=== PATIENT | male | born 1945 | race Caucasian/White ===

== ENCOUNTER 2018-01-31 19:33 | Observation (INO) | payer OTHER ==
--- NOTE | 2018-01-31 21:21 | RAD REPORT ---
EXAM DESCRIPTION: CT - Head Brain Wo Cont - 01/31/2018 9:11 pm CLINICAL HISTORY: DIZZINESS Headache, drowsiness COMPARISON: HEAD BRAIN W O CONTRAST dated 03/26/2012 TECHNIQUE: All CT scans are performed using dose optimization technique as appropriate and may inclu de automated exposure control or mA/KV adjustment according to patient size. FINDINGS: No intracranial hemorrhage, hydrocephalus or extra-axial fluid collection.No areas of brai n edema or evidence of midline shift. The paranasal sinuses and mastoids are clear. The calvarium is intact. IMPRESSION: No acute intracranial abnormality.
--- NOTE | 2018-01-31 21:24 | RAD REPORT ---
EXAM DESCRIPTION: RAD - Chest Single View - 01/31/2018 9:16 pm CLINICAL HISTORY: . Chest pain. COMPARISON: CHEST SINGLE VIEW dated 03/26/2012 FINDINGS: Portable technique limits examination quality. The lungs are grossly clear. The heart is normal in size. No displaced fractures. IMPRESSION: No acute intrathoracic process suspected.
[2018-01-31 21:43] LABS: Absolute Lymphocytes (CBC) 1.9 K/uL (0.7-4.9); Absolute Monocytes 0.7 K/uL (0.1-1.3); Absolute Neutrophil 6.4 K/uL (1.8-8.0); Basophils % 0.7 % (0-1.3); Eosinophils % 2.4 % (0-4.4); Lymphocytes % 20.4 % (15.3-44.8); MCH 32.6 pg (27.0-35.0); MCV 93.2 fL (80-100); Monocytes % 7.7 % (3.3-12.3); RBC Red Blood Cell Count 4.51 M/uL (4.33-5.43)
[2018-01-31 21:45] LABS: Protime INR 0.97
[2018-01-31 22:06] LABS: ALT/SGPT 29 U/L (12-78); AST/SGOT 35 U/L (15-37); Albumin 3.8 g/dL (3.4-5.0); Alkaline Phosphatase 90 U/L (45-117); BUN Blood Urea Nitrogen 20 mg/dL (7-18); Bicarbonate 31 mmol/L (21-32); Bilirubin Direct < 0.1 mg/dL (0-0.2); Bilirubin Total 0.5 mg/dL (0.2-1.0); Glucose Level 98 mg/dL (74-106); Magnesium 2.2 mg/dL (1.8-2.4); NT PRO-BNP 37 pg/mL (<125); Potassium 4.3 mmol/L (3.5-5.1); Sodium Level 137 mmol/L (136-145); Troponin (Emerg Dept Use Only) < 0.02 ng/mL (0.0-0.045)
[2018-01-31 22:55] LABS: Urine Blood NEGATIVE (NEG); Urine Glucose NEGATIVE (NEG); Urine Protein NEGATIVE (NEG); Urine Specific Gravity 1.015 (1.005-1.030)
--- NOTE | 2018-02-01 00:41 | EDPHYS ---
Physician Documentation [facility] Name: Daniel Slaughter Age: 72 yrs Sex: Male : 1945 Arrival Date: 01/31/2018 Time: 19:34 Bed 20 Private MD: ED Physician Sheldon Ramesh HPI: 01/31 22:03 This 72 yrs old Male presents to ER via Ambulatory with complaints of tw4 Dizziness, Headache. 22:03 The patient presents with lightheadedness. Onset: The symptoms/episode began/occurred tw4 10 day(s) ago. Context: occurred at home. Modifying factors: The symptoms are alleviated by nothing, the symptoms are aggravated by nothing. Associated signs and symptoms: The patient has no apparent associated signs or symptoms. Severity of symptoms: At their worst the symptoms were moderate in the emergency department the symptoms are unchanged. The patient has not experienced similar symptoms in the past. Historical: - Allergies: 19:42 No Known Allergies; aj1 - Home Meds: 19:42 "an over the counter natural medicine to lower my cholesterol" [Active]; aj1 - PMHx: 19:42 Hyperlipidemia; aj1 - Immunization history:: Flu vaccine is up to date. - Social history:: Smoking status: Patient/guardian denies using tobacco. - Ebola Screening: : Patient denies travel to an Ebola-affected area in the 21 days before illness onset. ROS: 22:03 Constitutional: Negative for fever, chills, and weight loss, Eyes: Negative for injury, tw4 pain, redness, and discharge, Cardiovascular: Negative for chest pain, palpitations, and edema, Respiratory: Negative for shortness of breath, cough, wheezing, and pleuritic chest pain, Abdomen/GI: Negative for abdominal pain, nausea, vomiting, diarrhea, and constipation, Back: Negative for injury and pain, MS/Extremity: Negative for injury and deformity, Skin: Negative for injury, rash, and discoloration. 22:03 Neuro: Positive for dizziness, Negative for altered mental status, gait disturbance, headache, hearing loss, loss of consciousness, numbness, seizure activity, speech changes, syncope, near syncope. Exam: 22:03 Constitutional: This is a well developed, well nourished patient who is awake, alert, tw4 and in no acute distress. Head/Face: Normocephalic, atraumatic. Chest/axilla: Normal chest wall appearance and motion. Nontender with no deformity. No lesions are appreciated. Cardiovascular: Regular rate and rhythm with a normal S1 and S2. No gallops, murmurs, or rubs. Normal PMI, no JVD. No pulse deficits. Respiratory: Lungs have equal breath sounds bilaterally, clear to auscultation and percussion. No rales, rhonchi or wheezes noted. No increased work of breathing, no retractions or nasal flaring. Abdomen/GI: Soft, non-tender, with normal bowel sounds. No distension or tympany. No guarding or rebound. No evidence of tenderness throughout. Back: No spinal tenderness. No costovertebral tenderness. Full range of motion. MS/ Extremity: Pulses equal, no cyanosis. Neurovascular intact. Full, normal range of motion. Neuro: Awake and alert, GCS 15, oriented to person, place, time, and situation. Cranial nerves II-XII grossly intact. Motor strength 5/5 in all extremities. Sensory grossly intact. Cerebellar exam normal. Normal gait. Vital Signs: 19:42 BP 141 / 76; Pulse 51; Resp 18; Temp 97.7(O); Pulse Ox 100% on R/A; Weight 77.11 kg aj1 (R); Height 5 ft. 4 in. (162.56 cm) (R); Pain 8/10; 20:30 BP 135 / 75; Pulse 53; Resp 16 S; Pulse Ox 99% on R/A; cc3 21:00 BP 116 / 95; Pulse 54; Resp 17 S; Pulse Ox 100% on R/A; cc3 22:30 BP 147 / 83; Pulse 54; Resp 17 S; Pulse Ox 98% on R/A; cc3 23:45 BP 116 / 67; Pulse 55; Resp 18 S; Pulse Ox 98% on R/A; cc3 02/01 00:29 BP 135 / 62; Pulse 60; Resp 18 S; Pulse Ox 100% on R/A; cc3 01:30 BP 133 / 79; Pulse 53; Resp 16 S; Pulse Ox 97% on R/A; cc3 02:44 BP 126 / 78; Pulse 54; Resp 17 S; Pulse Ox 97% on R/A; cc3 01/31 19:42 Body Mass Index 29.18 (77.11 kg, 162.56 cm) aj1 MDM: 01/31 20:43 Patient medically screened. tw02/01 05:31 Differential diagnosis: cardiac arrhythmia, CVA, generalized weakness, tw4 hyperventilation, idiopathic dizziness, near-syncope. Data reviewed: vital signs, nurses notes. Counseling: I had a detailed discussion with the patient and/or guardian regarding: the historical points, exam findings, and any diagnostic results supporting the discharge/admit diagnosis. Special discussion: I discussed with the patient/guardian in detail that at this point there is no indication for admission to the hospital. It is understood, however, that if the symptoms persist or worsen the patient needs to return immediately for re-evaluation. 01/31 20:54 Order name: Basic Metabolic Panel; Complete Time: 00:16 02/01 00:16 Interpretation: Normal except: BUN 20; CRE 1.40; GFR 50. 01/31 20:54 Order name: CBC with Diff; Complete Time: 00:20 02/01 00:20 Interpretation: Within normal limits. 01/31 20:54 Order name: LFT's; Complete Time: 00:19 02/01 00:20 Interpretation: Normal except: GLOB 4.2; A/G 0.9. 01/31 20:54 Order name: Magnesium; Complete Time: 00:20 02/01 00:20 Interpretation: Within normal limits: MG 2.2. 01/31 20:54 Order name: NT PRO-BNP; Complete Time: 00:20 02/01 00:20 Interpretation: Within normal limits: NT PRO-BNP 37. 01/31 20:54 Order name: PT-INR 01/31 20:54 Order name: Troponin (emerg Dept Use Only); Complete Time: 00:21 02/01 00:21 Interpretation: Within normal limits: TROPED < 0.02. 01/31 20:54 Order name: XRAY Chest (1 view) 01/31 20:54 Order name: EKG; Complete Time: 20:55 01/31 20:54 Order name: Cardiac monitoring; Complete Time: 21:01 01/31 20:54 Order name: EKG - Nurse/Tech; Complete Time: 21:52 01/31 20:56 Order name: CT Head Brain wo Cont tw4 01/31 22:23 Order name: Urine Dipstick--Ancillary (enter results) gm 01/31 20:54 Order name: IV Saline Lock; Complete Time: 21:36 tw4 01/31 20:54 Order name: Labs collected and sent; Complete Time: 21:36 tw4 01/31 20:54 Order name: O2 Per Protocol; Complete Time: 21: tw4 01/31 20:54 Order name: O2 Sat Monitoring; Complete Time: 21: tw4 EC/12 22:06 Rate is 52 beats/min. Rhythm is regular with Right bundle branch block. QRS [place] is tw4 Normal. DE interval is normal. QRS interval is normal. QT interval is normal. No Q waves. T waves are Normal. No ST changes noted. Clinical impression: NSR w/ Non-specific ST/T Changes. Interpreted by me. Reviewed by me. Administered Medications: 02/01 02:00 Drug: NS 0.9% 1000 ml Route: IV; Rate: 1 bolus; Site: right antecubital; cc3 02:35 Follow up: Response: No adverse reaction; IV Status: Infusion continued upon admission cc3 Disposition: 02/01/18 00:40 Hospitalization ordered by Gladys Wallace for Observation. Preliminary diagnosis is Chest pain, unspecified. - Bed requested for Telemetry/MedSurg (observation). - Status is Observation. cc3 - Condition is Stable. - Problem is new. - Symptoms have improved. UTI on Admission? No Signatures: Dispatcher [employer] EDPR Renea Casper RN RN aj1 Alejandra Pena RN RN fc Garcia, Cindy, RN RN Sheldon Ramesh MD MD tw4 Pao Muniz cc3 Corrections: (The following items were deleted from the chart) 02:20 00:40 Hospitalization Ordered by Gladys Wallace MD for Observation. Preliminary cg diagnosis is Chest pain, unspecified. Bed requested for Telemetry/MedSurg (observation). Status is Observation. Condition is Stable. Problem is new. Symptoms have improved. UTI on Admission? No. tw4 03:03 02:20 02/01/2018 00:40 Hospitalization Ordered by Gladys Wallace MD for Observation. cc3 Preliminary diagnosis is Chest pain, unspecified. Bed requested for Telemetry/MedSurg (observation). Status is Observation. Condition is Stable. Problem is new. Symptoms have improved. UTI on Admission? No. cg
--- NOTE | 2018-02-01 00:41 | ER ---
Nurse's Notes [facility] Name: Daniel Slaughter Age: 72 yrs Sex: Male : 1945 Arrival Date: 01/31/2018 Time: 19:34 Bed 20 Private MD: Diagnosis: Chest pain, unspecified Presentation: 01/31 19:36 Presenting complaint: Patient states: Dizziness for the past week that's worse today. aj1 Reports that he is having trouble getting to the bathroom in the morning because of the dizziness. Also reports that he "sometimes has some neck stiffness" when he wakes up in the morning. Reports that he has been more tired in the morning than usual. Transition of care: patient was not received from another setting of care. Onset of symptoms was January 24, 2018. Risk Assessment: Do you want to hurt yourself or someone else? Patient reports no desire to harm self or others. Initial Sepsis Screen: Does the patient meet any 2 criteria? No. Patient's initial sepsis screen is negative. Does the patient have a suspected source of infection? No. Patient's initial sepsis screen is negative. Care prior to arrival: None. 19:36 Method Of Arrival: Ambulatory aj1 19:36 Acuity: ISIDRA 3 aj1 Triage Assessment: 19:42 General: Appears in no apparent distress. comfortable, Behavior is calm, cooperative, aj1 appropriate for age. Pain: Complains of pain in neck Pain currently is 8 out of 10 on a pain scale. Pain began one week ago. Neuro: Level of Consciousness is awake, alert, obeys commands. Cardiovascular: Patient's skin is warm and dry. Respiratory: Airway is patent Respiratory effort is even, unlabored, Respiratory pattern is regular, symmetrical. 20:16 Headache History: The patient has had previous headaches and this one is different than cc3 previous episodes, and this one is more severe than previous episodes. Pain: Also complains of no other associated symptoms. Historical: - Allergies: 19:42 No Known Allergies; aj1 - Home Meds: 19:42 "an over the counter natural medicine to lower my cholesterol" [Active]; aj1 - PMHx: 19:42 Hyperlipidemia; aj1 - Immunization history:: Flu vaccine is up to date. - Social history:: Smoking status: Patient/guardian denies using tobacco. - Ebola Screening: : Patient denies travel to an Ebola-affected area in the 21 days before illness onset. Screenin:16 Abuse screen: Denies threats or abuse. Denies injuries from another. Nutritional cc3 screening: No deficits noted. Tuberculosis screening: No symptoms or risk factors identified. Fall Risk Ambulatory Aid- None/Bed Rest/Nurse Assist (0 pts). Gait- Normal/Bed Rest/Wheelchair (0 pts) Mental Status- Oriented to own ability (0 pts). Assessment: 20:16 Reassessment: Patient appears in no apparent distress at this time. Patient and/or cc3 family updated on plan of care and expected duration. Pain level reassessed. Patient is alert, oriented x 3, equal unlabored respirations, skin warm/dry/pink. 21:30 Reassessment: Patient appears in no apparent distress at this time. Patient and/or cc3 family updated on plan of care and expected duration. Pain level reassessed. Patient is alert, oriented x 3, equal unlabored respirations, skin warm/dry/pink. 22:45 Reassessment: Patient appears in no apparent distress at this time. Patient and/or cc3 family updated on plan of care and expected duration. Pain level reassessed. Patient is alert, oriented x 3, equal unlabored respirations, skin warm/dry/pink. 23:05 Reassessment: Patient appears in no apparent distress at this time. Patient and/or cc3 family updated on plan of care and expected duration. Pain level reassessed. Patient is alert, oriented x 3, equal unlabored respirations, skin warm/dry/pink. 02/01 00:40 Reassessment: Patient appears in no apparent distress at this time. Patient and/or cc3 family updated on plan of care and expected duration. Pain level reassessed. Patient is alert, oriented x 3, equal unlabored respirations, skin warm/dry/pink. Patient for admission, waiting for admission orders. 01:20 Reassessment: Patient appears in no apparent distress at this time. Patient and/or cc3 family updated on plan of care and expected duration. Pain level reassessed. Patient is alert, oriented x 3, equal unlabored respirations, skin warm/dry/pink. 02:35 Reassessment: Patient appears in no apparent distress at this time. Patient and/or cc3 family updated on plan of care and expected duration. Pain level reassessed. Patient is alert, oriented x 3, equal unlabored respirations, skin warm/dry/pink. Room available at 214, report handed over to CARLOS ALBERTO Aaron for continuity of care. 03:00 Reassessment: Patient appears in no apparent distress at this time. Patient and/or cc3 family updated on plan of care and expected duration. Pain level reassessed. Patient is alert, oriented x 3, equal unlabored respirations, skin warm/dry/pink. Patient left ER for admission vitally stable by wheelchair escorted by compressor service technicianrubi Fortune. Vital Signs: 01/31 19:42 BP 141 / 76; Pulse 51; Resp 18; Temp 97.7(O); Pulse Ox 100% on R/A; Weight 77.11 kg aj1 (R); Height 5 ft. 4 in. (162.56 cm) (R); Pain 8/10; 20:30 BP 135 / 75; Pulse 53; Resp 16 S; Pulse Ox 99% on R/A; cc3 21:00 BP 116 / 95; Pulse 54; Resp 17 S; Pulse Ox 100% on R/A; cc3 22:30 BP 147 / 83; Pulse 54; Resp 17 S; Pulse Ox 98% on R/A; cc3 23:45 BP 116 / 67; Pulse 55; Resp 18 S; Pulse Ox 98% on R/A; cc3 02/01 00:29 BP 135 / 62; Pulse 60; Resp 18 S; Pulse Ox 100% on R/A; cc3 01:30 BP 133 / 79; Pulse 53; Resp 16 S; Pulse Ox 97% on R/A; cc3 02:44 BP 126 / 78; Pulse 54; Resp 17 S; Pulse Ox 97% on R/A; cc3 01/31 19:42 Body Mass Index 29.18 (77.11 kg, 162.56 cm) aj1 ED Course: 01/31 02:40 No provider procedures requiring assistance completed. Patient admitted, IV remains in cc3 place. 19:34 Patient arrived in ED. ds1 19:41 Triage completed. aj1 19:42 Arm band placed on Patient placed in waiting room, Patient notified of wait time. aj1 20:16 Pao Muniz is Primary Nurse. cc3 20:16 Patient has correct armband on for positive identification. Bed in low position. Call cc3 light in reach. Side rails up X 1. clinical research monitor on. Pulse ox on. NIBP on. 20:43 Sheldon Ramesh MD is Attending Physician. tw4 20:[address] nj 21:12 CT Head Brain wo Cont In Process Unspecified. EDMS 21:12 CT completed. Patient tolerated procedure well. Patient moved back from CT. nj 21:16 XRAY Chest (1 view) In Process Unspecified. EDMS 21:36 Inserted saline lock: 20 gauge in right antecubital area, using aseptic technique. nd Blood collected. 12 00:40 Gladys Wallace MD is Hospitalizing Provider. tw4 Administered Medications: 02:00 Drug: NS 0.9% 1000 ml Route: IV; Rate: 1 bolus; Site: right antecubital; cc3 02:35 Follow up: Response: No adverse reaction; IV Status: Infusion continued upon admission cc3 Outcome: 00:40 Decision to Hospitalize by Provider. tw4 02:35 Admitted to Med/surg accompanied by tech, via wheelchair, room 214, with chart, Report cc3 called to CARLOS ALBERTO Aaron 02:35 Condition: stable 02:35 Instructed on the need for admit, Demonstrated understanding of instructions. 03:03 Patient left the ED. cc3 Signatures: Dispatcher [employer] Renea Michael, RN RN [email or web address] Serafin, Alanna ds1 Brad No, Lesly nd Sheldon Ramesh MD MD tw4 Pao Muniz cc3
[2018-02-01] MEDS ORDERED: NA CHLORIDE 0.9% 1,000 ML ONE (02:12)
[2018-02-01] MEDS ORDERED: ONDANSETRON 4 MG/2 ML VIAL IV PRN (02:47)
[2018-02-01] MEDS ORDERED: ACETAMINOPHEN 500 MG TAB PO PRN (02:47)
[2018-02-01 03:27] VITALS: BMI 29.9
[2018-02-01] MEDS: NA CHLORIDE 0.9% 1,000 ML IV SCH ×4 (03:41→23:00)
[2018-02-01 04:18] VITALS: O2SAT 95
--- NOTE | 2018-02-01 05:00 | P.HP ---
Certification for Inpatient Patient admitted to: Observation With expected LOS: <2 Midnights Practitioner: I am a practitioner with admitting privileges, knowledge of patient current condition, hospital course, and medical plan of care. Services: Services provided to patient in accordance with Admission requirements found in Title 42 Section 412.3 of the Code of Federal Regulations Patient History Date of Service: 02/01/18 Reason for admission: dizziness History of Present Illness: Mr Slaughter is a 72 years old male with history of dyslipidemia, who start about 3-4 days ago with progressive weakness and dizziness. He is not able to walk safe, since he is afraid to fall. He denied fever or chills. He has not had chest pain, cough or SOB. He noticed that has been urinating less in the last couple of days. CT head showed no acute abnormalities. Lab work remarkable for normal WBC count, creatinine mildly elevated, UA unremarkable. Allergies No Known Allergies Allergy (Verified 03/27/12 05:52) Home medications list reviewed: Yes Home Medications: NK [No Home Meds] 02/01/18 - Past Medical/Surgical History Has patient received pneumonia vaccine in the past: Yes Diabetic: No -: hyperlipidemia -: inflammed prostate - Family History Family History: Reviewed- Non-Contributory - Social History Smoking Status: Former smoker Alcohol use: Yes CD- Drugs: No Caffeine use: Yes Place of Residence: Home Review of Systems 10-point ROS is otherwise unremarkable Physical Examination - Vital Signs Temperature: 97.7 F Blood Pressure: 126/78 Pulse: 54 Respirations: 17 - Physical Exam General: Alert, In no apparent distress HEENT: Atraumatic, PERRLA, Mucous membr. moist/pink, EOMI, Sclerae nonicteric Neck: Supple, 2+ carotid pulse no bruit, No LAD, Without JVD or thyroid abnormality Respiratory: Clear to auscultation bilaterally, Normal air movement Cardiovascular: Regular rate/rhythm, Normal S1 S2 Gastrointestinal: Normal bowel sounds, No tenderness Musculoskeletal: No tenderness Integumentary: No rashes Neurological: Normal speech, Normal strength at 5/5 x4 extr, Normal tone, Normal affect Lymphatics: No axilla or inguinal lymphadenopathy - Studies Laboratory Data (last 24 hrs) 01/31/18 21:30: PT 11.4, INR 0.97 01/31/18 21:30: WBC 9.3, Hgb 14.7, Hct 42.0, Plt Count 299 01/31/18 21:30: Sodium 137, Potassium 4.3, BUN 20 H, Creatinine 1.40 H, Glucose 98, Magnesium 2.2, Total Bilirubin 0.5, AST 35, ALT 29, Alkaline Phosphatase 90 Assessment and Plan - Problems (Diagnosis) (1) Dizziness Current Visit: Yes Status: Acute (2) Acute renal injury Current Visit: Yes Status: Acute (3) Volume depletion Current Visit: Yes Status: Acute (4) Dyslipidemia Current Visit: Yes Status: Acute - Plan The patient will be admitted to the hospital under observation due to dizziness and weakness secondary to volume depletion. No signs of acute infection. Continue IV normal saline infusion. F/U in AM to evaluate symptoms and potential discharge. - Advance Directives Does patient have a Living Will: No Does patient have a Durable POA for Healthcare: No - Code Status/Comfort Care Code Status Assessed: Yes Code Status: Full Code
--- NOTE | 2018-02-01 05:11 | EKG ---
Test Date: 2018-01-31 Test Time: 21:41:36 [employer]: MARCUS MEASUREMENT RESULTS: Intervals: Rate: 52 [place]: 162 QRSD: 106 QT: 446 QTc: 414 [place]: P: 57 [place]: 162 QRS: -50 T: 31 INTERPRETIVE STATEMENTS: Sinus bradycardia Left axis deviation Incomplete right bundle branch block Abnormal ECG Compared to ECG 03/27/2012 21:00:55 Incomplete right bundle-branch block now present Electronically Signed On 02-01-18 05:11:20 COTTON CLASSER AIDE by Heath Ling
--- NOTE | 2018-02-01 15:50 | RAD REPORT ---
EXAM DESCRIPTION: RAD - C Spine Ap/Lat - 02/01/2018 3:44 pm CLINICAL HISTORY: Neck pain, dizziness, headache COMPARISON: None. FINDINGS: Cervical bodies are normal in height. No compression fractures seen. No lytic, sclerotic o r expansile bony destructive process. There is 2 mm subluxation C3 on C4. Approximately 4 mm anterior subluxation of C3 on C4. This is bel ieved to be secondary to prominent facet degenerative changes at both of these disc levels. C4-5, C5- 6 and C6-7 disc levels are narrowed with endplate spurring. Facet degenerative changes are relatively mild. There is no prevertebral soft tissue thickening or other suspicious soft tissue finding. IMPRESSION: Prominent cervical spine degenerative changes are present but no fracture or acute proce ss seen. Subluxation abnormalities are believed to be secondary to facet degenerative change.
[2018-02-01] MEDS: MECLIZINE HCL 12.5 MG TAB PO SCH ×2 (17:25→22:58)
[2018-02-01] MEDS: ENOXAPARIN 40 MG/0.4 ML SQ SCH (17:53)
--- NOTE | 2018-02-01 22:40 | PN ---
Date of Progress Note: 02/01/2018 Subjective: Patient seen and examined. Chart reviewed and case discussed with RN. The patient comp lains of intermittent dizziness along with vertigo, not orthostatic. Does also complain of pain in h is neck. Medications: List reviewed. Physical Examination: Vital Signs: Temperature 97.6, heart rate 78, blood pressure 145/68, respirations 16, O2 96% on room air. General: Awake, alert, oriented x3. Some mild distress. Elderly male. CV: S1, S2. Regular rate and rhythm. No murmurs. Peripheral pulses present. Respiratory: Moving air well bilaterally. No wheezing or stridor. Gastrointestinal: Abdomen is sof t, nontender, nondistended. Positive bowel sounds. No guarding or rigidity. Extremities: No clubbing, cyanosis, or edema. Musculoskeletal: No tenderness to palpation of the cervical spine. Range of motion is intact. Neurologic: Nonfocal. Cranial nerves 2 through 12 intact grossly. No focal neurological deficits. Speech is normal. Strength is symmetric in bilateral upper and lower extremities. Laboratory Data: Sodium 137, potassium 4.3, chloride 102, CO2 31, BUN 20, creatinine 1.4, glucose 98 , calcium 9.2, magnesium 2.2. Troponin less than 0.2. WBC 9.3. Imaging Data: Cervical spine x-ray shows prominent cervical spine degenerative changes are present, but no fracture or acute process seen. Subluxation abnormalities are believed to be secondary to fac et degenerative change. Assessment And Plan: 1.Dizziness. We will give trial of meclizine. Head CT scan is negative, may be benign positional v ertigo. 2.Acute kidney injury. We will repeat BMP in a.m. and monitor creatinine. 3.Volume depletion. We will continue with IV fluids. 4.Mixed hyperlipidemia. Continue statin. 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 6.Gastrointestinal and deep vein thrombosis prophylaxis addressed. Plan: PT evaluation. Possible neuro eval if symptoms continued to worsen. Continue IV fluids. Cole gutierrez DC in a.m. SA/DIANA Voice ID: [id number] Report ID: [id number]
[2018-02-02] MEDS: NA CHLORIDE 0.9% 1,000 ML IV SCH ×3 (05:34→17:54)
[2018-02-02 06:04] LABS: Absolute Lymphocytes (CBC) 1.6 K/uL (0.7-4.9); Absolute Monocytes 0.6 K/uL (0.1-1.3); Absolute Neutrophil 3.9 K/uL (1.8-8.0); Basophils % 1.1 % (0-1.3); Hematocrit 38.8 % (39.6-49.0); Lymphocytes % 25.1 % (15.3-44.8); MCH 32.1 pg (27.0-35.0); MCV 92.2 fL (80-100); MPV 8.5 fL (7.6-11.3); Monocytes % 9.5 % (3.3-12.3)
[2018-02-02] MEDS: MECLIZINE HCL 12.5 MG TAB PO SCH ×2 (09:04→15:29)
--- NOTE | 2018-02-02 15:22 | RAD REPORT ---
EXAM DESCRIPTION: MRI - Brain W/Wo Cont - 02/02/2018 3:03 pm CLINICAL HISTORY: Syncope/headaches COMPARISON: January head CT TECHNIQUE: Axial, sagittal, and coronal magnetic images of the brain were obtained. 20 cc MultiHance administered intravenously FINDINGS: No abnormal signal within the brain is noted. The ventricles are normal in caliber. Diffusion-weighted sequences do not demonstrate evidence of an acute infarction. No abnormal enhancement within the brain is seen. An extra-axial fluid collection is not noted. Fluid within the sinuses/mastoids is not seen IMPRESSION: Unremarkable brain MRI.
--- NOTE | 2018-02-02 15:25 | RAD REPORT ---
EXAM DESCRIPTION: MRI - MRA Head Wo Cont - 02/02/2018 3:04 pm CLINICAL HISTORY: Syncope COMPARISON: None. TECHNIQUE: Magnetic resonance angiogram was performed. 3D MIPS reconstruction performed FINDINGS: The anterior cerebral, middle cerebral, posterior cerebral, distal internal carotid and ba silar arteries do not demonstrate a significant stenosis. origin right posterior cerebral artery. A1 segment left anterior cerebral artery is very hypopl astic An aneurysm is not displayed. IMPRESSION: No significant abnormality displayed
--- NOTE | 2018-02-02 15:27 | RAD REPORT ---
EXAM DESCRIPTION: MRI - MRA Neck W/Wo Cont - 02/02/2018 3:03 pm CLINICAL HISTORY: Syncope COMPARISON: None. TECHNIQUE: Magnetic resonance angiogram of the neck was performed. 19 cc MultiHance was administered intravenously. 3D MIPS reconstruction performed FINDINGS: Mild plaque is present within the left carotid bulb. Remainder the common carotid, right internal carotid and vertebral arteries do not demonstrate a sign ificant stenosis. An aneurysm is not seen. An aneurysm is not seen. Left vertebral artery is little bit more dominant than the right. IMPRESSION: Mild plaque within the left carotid bulb. A significant stenosis is not seen NASCET criteria used. Mild 0-49% stenosis Moderate 50-69% stenosis Severe 70-99% stenosis
[2018-02-02] MEDS: ENOXAPARIN 40 MG/0.4 ML SQ SCH (17:00)
[2018-02-02 17:23] VITALS: BP 132/63; TEMP 97.7
[2018-02-02] MEDS ORDERED: GUAIFENESIN 600 MG SA TAB PO SCH (21:00)
--- NOTE | 2018-02-02 22:03 | CON ---
Reason For Consultation: Consultation called by Dr. Bowden because of dizziness and possible stroke. History Of Present Illness: Mr. Slaughter is a 72-year-old patient with a history of dyslipidemia, david g history of heavy alcohol use, however, he quit about 15 years ago, and positional vertigo; for whic h, he was seen at the [facility]. The patient comes in with dizziness. He said he turned over, act ually tried to get out from a sofa, which he was sleeping in, turned to the right side. As he got up to move and began to turn, he felt nauseated, did not throw up. The symptoms continued for some cou ple of hours and eventually began to feel a little better. He did say that a very similar episode oc curred about 2 years ago when he moved his head upwards from a position where his head was bent down. The world was spinning from left to right and he had to crawl around, could not stand because of th e fear of falling. That event continued for about 2 hours. He did say intermittently he would have similar symptoms if he were to move his head up quickly from a bent position that is bending down to lifting up, but those symptoms would be less than a minute. At [facility], brain MRI, head and neck MRA were all unremarkable; no strokes, no tumors, no hydrocephalus, and no abnormalities. T he patient said the symptoms have resolved. Blood work for complete blood count with differential wa s unremarkable. Coagulation panel was normal. He did have a finding of mild dehydration with creati nine 1.4, after hydration 1.1. Glucose normal. Calcium was normal. Liver function studies were nor mal and urinalysis negative. Past Medical History: As indicated above. Social History: The patient again drank heavily up to a dozen beer a day and a third of a Shiraz per d ay, but that he said he stopped 15 years ago or more and did smoke a pack a day, but stopped again. Family History: Noncontributory. Allergies: NO KNOWN DRUG ALLERGIES. Medications At Home: None on regular basis. Review of Systems: He denies any recent fevers, chills, nausea, vomiting, myalgias, arthralgias, other than mentioned ab ove. No rash, weight change, or headache. No psychiatric complaints. No gastrointestinal or genito urinary issues. Hospital Medications: In terms of hospital medications, he is on the Lovenox for DVT prophylaxis. Oscar major does have meclizine for the vertigo, Zofran for nausea, and Tylenol for pain. Physical Examination: Vital Signs: Blood pressure 138/62. His orthostatic pressures; when he is lying, blood pressure 132 /62, pulse 46; when he is sitting, blood pressure 131/64, pulse 50 and when he is standing, blood pre ssure 130/67, pulse 51 and none of those were positive. Temperature 97.6, respiratory rate 14 to 18, weight 174 pounds, and height 5 feet and 4 inches. General: Mr. Slaughter is lying in bed comfortably. He is in no acute distress. He does have a long brody louis. HEENT: He is normocephalic, atraumatic. His sclerae are anicteric. Oropharynx is moist and pink. Neck: Supple. Chest: Clear. Heart: Regular. Extremities: Show no edema, cyanosis, or clubbing. Neurological: He is alert and oriented to situation, place, and person, follows all commands appropr iately. His pupils are equally round and reactive to light and accommodation. His extraocular movem ents are intact. Facial sensation is intact to light touch, pinprick, and temperature in V1, V2, and V3. Cranial nerves, rest of them are intact. Motor examination: In the upper and lower extremity, he has normal bulk and tone, 5/5 strength proximally and distally. Sensory exam is intact to light touch, pinprick, and temperature in the arms and legs. Coordination is intact in the upper and lower extremities. Gait, good stance, right arm swing. Assessment: Mr. Slaughter is a 72-year-old patient with benign paroxysmal positional vertigo. No evid ence of stroke. He does have some comorbid conditions that put him at risk for stroke and could bene fit from small aspirin 81 mg daily and should have a lipid panel and determine if he requires dyslipi demia medications. Plan: 1.The patient was told how to perform the home Alyssia maneuver. 2.He may have meclizine as needed. 3.The patient was told to take an aspirin 81 mg daily. 4.He may be discharged home. Follow up with Dr. Connor in clinic 1 month later. SUSAN/DIANA Voice ID: [id number] Report ID: [id number]
[2018-02-03] MEDS ORDERED: FLUTICASONE 50MCG NASAL SPRAY NAS SCH (09:00)
--- NOTE | 2018-02-03 14:40 | DS ---
Date of Discharge: 02/02/2018 Consultants: Dr. Connor with Neurology. Discharge Diagnoses: 1.Dizziness, improved. 2.Acute kidney injury, resolved. 3.Volume depletion, resolved. 4.Mixed hyperlipidemia. 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 Hospital Course: Patient is a 72-year-old male with past medical history of dyslipidemia, diet contr olled, who comes in with progressive weakness and dizziness. Patient has been having an abnormal gai t and as felt that he was going to fall. Patient has been somewhat dehydrated as well. Workup was d one including CT scan of the head, which did not show any acute changes. Chest x-ray was clear. He did report significant pain in his neck and cervical spine x-ray showed degenerative disk disease and severe arthritis. Patient was tried on meclizine. He did not have symptoms consistent with benign paroxysmal vertigo. However, suspicion for brainstem stroke was arise. Therefore, MRI of the brain stroke protocol was done to rule out any CVA. Hence, MRI of the brain did not show any acute cerebro vascular accident. MRA of the neck showed mild plaque within the left carotid bulb and significant s tenosis is not seen. MRA of the brain showed no significant abnormality, no aneurysms. Patient work ed with physical therapy and did well. He did have to utilize a walker and patient does have a walke r at home, which he is willing to use. Patient states that the meclizine did improve his symptoms. His kidney function improved with IV hydration. His generalized weakness also resolved. Patient was then cleared for discharge home health with PT, will be set up through the [facility]. Medications: As per medication reconciliation list. Followup: Follow up with primary care physician at the [facility] in 2-3 days. Follow up with neurologist, Dr. Connor in 2 weeks. Diet: Heart healthy. Activity: Fall precautions. Use walker for ambulation. Physical Examination: General: Awake, alert, oriented x3. No acute distress. Elderly male. CV: S1, S2. No murmurs. Respiratory: Moving air well bilaterally. No wheezing. Gastrointestinal: Abdomen is soft, nontender, nondistended. Positive bowel sounds. Extremities: No clubbing, cyanosis, or edema. Neurologic: Nonfocal. SA/MODL Voice ID: [id number] Report ID: [id number]
== END 2018-02-02 19:43 | disposition home health service (06) ==
LOC: ER 19:33 → 2ND 02-01 02:02
PROVIDERS: ADMIT Internal Medicine; ATTEND Internal Medicine
DX: R42 Dizziness and giddiness (principal); N17.9 Acute kidney failure, unspecified; E86.9 Volume depletion, unspecified; E78.2 Mixed hyperlipidemia; M46.82 Other specified inflammatory spondylopathies, cervical region; M50.30 Other cervical disc degeneration, unspecified cervical region
CPT/HCPCS: 36415; 70450; 70544; 70549; 70553; 71045; 72040; 80048; 80076; 81003; 83735; 83880; 84484; 85025; 85610; 93005; 96360; 97163; 99285; A9577; G0378; J1650; J7030